=== PATIENT | female | born 1975 | race Hispanic/Latino ===

== ENCOUNTER 2020-03-26 10:02 | Observation (INO) | payer OTHER ==
[2020-03-24 16:32] LABS: BASOPHILS # (AUTO) 0.1 (0.0-0.1); BASOPHILS % 0.6 % (0.0-1.0); EOSINOPHILS # (AUTO) 0.2 (0.0-0.4); EOSINOPHILS % 2.5 % (0.0-6.0); HEMATOCRIT 32.8 % (34.2-44.1); HEMOGLOBIN 10.2 g/dL (12.0-16.0); LYMPHOCYTES # (AUTO) 1.5 (1.0-3.2); LYMPHOCYTES % 18.4 % (18.0-39.1); MEAN CORPUSCULAR HEMOGLOBIN 26.6 pg (28-32); MEAN CORPUSCULAR HGB CONC 31.1 g/dL (31-35); MEAN CORPUSCULAR VOLUME 85.4 fL (81-99); MONOCYTES # (AUTO) 0.6 (0.2-0.8); MONOCYTES % 7.7 % (4.4-11.3); NEUTROPHILS # (AUTO) 5.6 (2.1-6.9); NEUTROPHILS % 70.5 % (38.7-80.0); PLATELET COUNT 297 x10e3/uL (140-360); RED BLOOD COUNT 3.84 x10e6/uL (3.6-5.1); RED CELL DISTRIBUTION WIDTH 15.3 % (11.7-14.4)
[2020-03-24 16:35] LABS: BILIRUBIN,URINE NEGATIVE (NEGATIVE); CLARITY,URINE SL CLOUDY (CLEAR); COLOR,URINE YELLOW (YELLOW); KETONES,URINE NEGATIVE (NEGATIVE); LEUKOCYTE ESTERASE ,URINE NEGATIVE (NEGATIVE); NITRITE,URINE NEGATIVE (NEGATIVE); PROTEIN,URINE DIPSTICK NEGATIVE (NEGATIVE); URINE UROBILINOGEN 0.2 mg/dL (0.2 - 1)
[2020-03-24 16:49] LABS: ANION GAP 10.9 mmol/L (8-16); BLOOD UREA NITROGEN 18 mg/dL (7-26); BUN/CREATININE RATIO 25 (6-25); CALCIUM 9.1 mg/dL (8.4-10.2); CARBON DIOXIDE 26 mmol/L (22-29); CHLORIDE 105 mmol/L (98-107); CREATININE, SERUM 0.72 mg/dL (0.57-1.11); EST GLOMERULAR FILTRATION RATE > 60 ML/MIN (60-); GLUCOSE 97 mg/dL (74-118); POTASSIUM 3.9 mmol/L (3.5-5.1); SODIUM 138 mmol/L (136-145)
[~2020-03-26] VITALS: Ht 157.5 cm; Wt 63.0 kg
[~2020-03-26 10:02] MED LIST: ADDERALL 30 MG30 MG PO
[2020-03-26] MEDS: CEFAZOLIN SOD 1 GM/NS 50ML 100 ML IV ONE (11:33)
[2020-03-26] MEDS ORDERED: PROPOFOL IV EMULSION 10 MG/ML 20 ML VIAL ONE (13:45)
[2020-03-26] MEDS ORDERED: ONDANSETRON HCL INJ 2MG/ML 2ML 2 MG/ML VIAL ONE (13:45)
[2020-03-26] MEDS ORDERED: DEXAMETHASONE SOD PHOS INJ 4 MG/ML VIAL ONE (13:45)
[2020-03-26] MEDS ORDERED: ROCURONIUM BROMIDE 10 MG/ML 5ML VIAL IV ONE (13:45)
[2020-03-26] MEDS ORDERED: KETOROLAC TROMETHAMINE 30 MG/ML VIAL ONE (13:45)
[2020-03-26] MEDS ORDERED: SEVOFLURANE INHAL SOLN 250 ML PEN BTL ONE (13:45)
[2020-03-26] MEDS ORDERED: LIDOCAINE HCL 2% LOCAL INJ 5 ML SDV VIAL INJ ONE (13:45)
[2020-03-26] MEDS ORDERED: MEPERIDINE HCL INJ 25 MG/ML VIAL ONE (15:39)
[2020-03-26] MEDS ORDERED: ONDANSETRON HCL INJ 2MG/ML 2ML 2 MG/ML VIAL IV PRN (15:45)
[2020-03-26] MEDS ORDERED: DIPHENHYDRAMINE HCL 25 MG CAP PO PRN (15:45)
[2020-03-26] MEDS ORDERED: BISACODYL 10 MG SUPP PR PRN (15:45)
[2020-03-26] MEDS ORDERED: ACETAMINOPHEN 325 MG TAB PO PRN (15:45)
[2020-03-26] MEDS ORDERED: DOCUSATE SODIUM 100 MG CAP PO PRN (15:45)
[2020-03-26] MEDS ORDERED: SIMETHICONE 80 MG CHEW PO PRN (15:45)
--- OUTSIDE RECORDS SUMMARY | 2020-03-26 16:08 | XMS REPORT | Continuity of Care Document ---
Author Author [facility] t Organization [facility] Address [address] [place] [address] Phone Unavailable Care Team Providers Care Mems Device Scientist Name Role Phone Chad Rayisel Attphys Unavailable Marivel Perez Attphys Arnoldo Ulrich Attphys Unavailable Harsh Henao Attphys Unavailable Radha Rush Attphys Unavailable Joana Patton Attphys Unavailable Gayatri Simmons Attphys Unavailable Faith Lezama Attphys Supervisor Taping, Health Advocate Student Attphys Unavail able Ernesto Freeman Attphys Unavailable Vivien Francisca Attphys Unavailable Denzel Snyder Attphys Unavailable Gabriella Callahan Attphys Unavailable Paul, Ammy Attphys Unavailable Chanelle De La Cruz Attphys Unavailable Juliana, Lorenz Ocotlan Attphys Unavailable Wili Bowles Attphys Marie العلي Attphys Unavailable Luci Will Attphys Unavailable Carter, Naila Attphys Unavailable Lisa Falcon Attphys Nathaly Cronin Attphys Unavailable Ellen Vicente Attphys Barry, Christiane Attphys Unavailable Javi, Paulette Attphys Unavailable Maxwell Sanders Attphys Quezada, Christiane Attphys Unavailable Jon Dang Attphys Unavailable Shanice, Mary Attphys Unavailable Feng Waretee Attphys Unavailable Wilda Burgos Attphys Unavailable Elisabeth Dumont Attphys Unavailable Roni, Leslee Attphys Unavailable Izquierdo, Tracey Attphys Unavailable Preeti Bull Attphys Unavailable Lomax, Alison Attphys Araceli French Attphys Gaffney Hilary Attphys Unavailable Romi Alvaerz Attphys Harrison Reddy Attphys Unavailable CRAIG Perez, Bridget Attphys Unavailable Juan Luis Posta Attphys Unavailable Status, Fax Attphys Unavailable Cavazos, Agnes Attphys AvalosJamar mcclellan Attphys Unavailable Yaa, Shima Attphys Unavailable Jono, Suzanne Attphys Unavailable Galvan, Jesenia Attphys Unavailable Nomi Trevizo Attphys Celestina Massey Attphys Unavailable Felicia, Mercades Attphys Unavailable Marx, Elsie Attphys Unavailable HarikaTerri espinoa Attphys Faith Lezama Unavailable Wili Bowles Unavailable Lomax Alison Unavailable [place] singh Unavailable Nomi Trevizo Unavailable Payers Payer Name Policy Type Policy Number Effective Date Expiration Date S ource Sliding Fee - Cat 1 CI [id number] 2018 00:00:00 2019-07 00:00:00 [facility] Sliding Fee - Cat 1 CI [id number] 2015 00:00:00 2016-10 00:00:00 [facility] Sliding Fee - Cat 1 11 [id number] 2014 00:00:00 2015-10 00:00:00 [facility] Problems Condition Name Condition Details Condition Category Status Onset Date Resolution Date Last Treatment Date Treating Clinician Comments Source Hemorrhoids, external Condition Active 2018-12-10 00:00:0 0 2018-12-10 09:24:00 [facility] Condition Active 2018-12-10 00:00:00 2018 09:24:00 Faith Lezama [facility] Gynecological examination, routine Condition Active 12-10 00:00:00 2018-12-10 09:24:00 Faith Lezama [facility] GERD Condition Active 2018-05-28 00:00:00 2018-12-10 08:50:37 Teja Faith [facility] Encounter for immunization Condition Active 2017-07-17 00 :00:00 2018-05-28 09[facility]52[facility] Condition Active 2017-07-17 00 :00:00 2018-05-28 09[facility]52[facility] BMI 28.0-28.9 Condition Active 2017-07-17 00:00:00 2017 09:19:27 [facility] Overweight Condition Active 2017-07-17 00:00:00 2017-06 09:19:27 [facility] ADHD, PREDOMINANTLY INATTENTIVE PRESENTATION, MILD Con dition Active 2016-07-03 00:00:00 2017-06-11 13:00:50 Alison Lomax [facility] LEARNING DISORDER NOS Condition Active 2016-02-08 00:00:0 0 2017-06-11 13:00:50 Marivel Perez [facility] Enlarged uterus Condition Active 2015-06-09 00:00:00 20 05-06-19 17:21:03 Nomi Trevizo [facility] History of Past Illness Condition Name Condition Details Condition Category Status Onset Date Resolution Date Last Treatment Date Treating Clinician Comments Source Fever Condition Inactive 2018-05-28 00:00:00 2018-12-10 00:00:00 2018-12-10 09:24:00 Faith Lezama [facility] URI Condition Inactive 2018-05-28 00:00:00 2018-12-10 00:00:00 2018-12-10 09:24:00 aFith Lezama [facility] Screening examination for pulmonary tuberculosis Condi tion Inactive 2018-05-28 00:00:00 2018-12-10 00:00:00 2018-12-10 09:24:00 Faith Lezama [facility] Breast Exam, Screening Condition Inactive 2017-07-17 00 :00:00 2018-12-10 00:00:00 2018-12-10 09:24:00 [facility] WELL WOM[facility] Condition Inactive 2015-06-09 00:00:00 2018-11-19 3 00:00:00 2018-12-10 09:24:00 Faith Lezama [facility] Special screening examination for other specified viral diseases Condition Inactive 2017-07-17 00:00:00 2018-05-28 00:00:00 2018-05-28 10:22:18 Faith Yao [facility] Screening for std Condition Inactive 2017-07-17 00:00:00 20 08-06-07 00:00:00 2018-05-28 10:22:18 Faith Lezama [facility] Screening for vitamin D deficiency Condition Inactive 2 00:00:00 2018-05-28 00:00:00 2018-05-28 10:22:18 Faith Lezama [facility] Screening for DM Condition Inactive 2017-07-17 00:00:00 201 01-20-08 00:00:00 2018-05-28 10:22:18 Faith Lezama [facility] Screening for endocrine disease Condition Inactive 2017 00:00:00 2018-05-28 00:00:00 2018-05-28 10:22:18 [facility] Screening for chlamydial disease Condition Inactive 201 12-20-26 00:00:00 2018-05-28 00:00:00 2018-05-28 10:22:18 [facility] Screening for lipid disorder Condition Inactive 2017-06 00:00:00 2018-05-28 00:00:00 2018-05-28 10:22:18 [facility] Menorrhagia Condition Inactive 2015-06-09 00:00:00 00:00:00 2017-07-17 09:19:27 Wili Bowles [facility] ADHD, COMBINED PRESENTATION, MODERATE Condition Inactive 2015-04-05 00:00:00 2017-06-11 00:00:00 2017-06-11 13:02:50 Marivel Perez [facility] Adjustment disorder with depressed mood Condition I nactive 2014-11-26 00:00:00 2015-12-17 00:00:00 2015-12-17 11:23:08 Marivel Perez [facility] ANXIETY DISORDER NOS Condition Inactive 2014-11-26 00:0 0:00 2015-12-17 00:00:00 2015-12-17 11:23:08 Marivel Peerz [facility] Allergies, Adverse Reactions, Alerts Allergy Name Allergy Type Status Severity Reaction(s) Onset Date Inacti ve Date Treating Clinician Comments Source VICODIN Drug allergy (disorder) Active Hives 2014-11-26 00:00:00 [facility] Social History Social Habit Start Date Stop Date Quantity Comments Source drug use, illicit 2019-07-03 08:11:09 2019-07-03 08:11:09 Never [facility] alcohol use 2019-07-03 08:11:09 2019-07-03 08:11:09 Currently [facility] social history reviewed E&M 2019-07-03 08:11:09 2019-07-03 08:11 :09 reviewed today [facility] social history E&M 2019-07-03 08:11:09 2019-07-03 08:11:09 Denise sheehan Family is financially supported by mother's job and mother applied for unemployment. since 2009. Currently has a boyfriend. Not homeless. Born in [facility]. City: [place]. State: [place]. Lives with children (20, 18, 17, 15, 14, and 12 year old) in a house in [place]. 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 Highest education level: some college. 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 One year of college. She was a B student. No history of repeating a grade or needing a accommodations. Sex at : Female. Sexual orientation: Heterosexual. Gender identity: Female. Age of first sexual intercourse: 12. Sexually Active: No. Grew up in [employer] which was very strict, no longer participating and in [employer] [facility] alcohol use, frequency 2018-12-10 08:19:42 2018-12-10 08:19:42 h olidays/special occasions only [facility] is there any chance that you could be ? 2018-12-10 0 8:19:42 2018-12-10 08:19:42 No [facility] passive cigarette smoke exposure 2018-12-10 08:19:42 2018-12-10 08:19 :42 No [facility] sexual orientation 2018-12-10 08:19:42 2018-12-10 08:19:42 Heterosexu al [facility] assessment of health literacy ([facility] 2014 Standard s, 3C10) 2018-12-10 08:19:42 2018-12-10 08:19:42 Adequate [facility] time of call 2018-07-01 10:25:58 2018-07-01 10:25:58 07/01/2018 10:26 AM [facility] I do not always have enough money to buy food with 2017-06-22 7 08:22:12 2017-07-17 08:22:12 Yes [facility] fiber intake 2017-07-17 08:22:12 2017-07-17 08:22:12 No [facility] fat intake per day 2017-07-17 08:22:12 2017-07-17 08:22:12 No [facility] iron intake per day 2017-07-17 08:22:12 2017-07-17 08:22:12 No [facility] exercise type 2017-07-17 08:22:12 2017-07-17 08:22:12 none [facility] smoke detector present in home 2017-07-17 08:22:12 2017-07-17 08:22:1 2 Yes [facility] helmet use when riding 2017-07-17 08:22:12 2017-07-17 08:22:12 No [facility] seatbelt usage 2017-07-17 08:22:12 2017-07-17 08:22:12 Yes [facility] sex at 2017-07-17 08:22:12 2017-07-17 08:22:12 Female [facility] tobacco use (cigarettes, cigar, chew, pipe) 2015-06-09 14:20 :42 2015-06-09 14:20:42 Never [facility] alcohol use, number maximum drinks per occasion 2014-11-26 0 8:46:13 2014-11-26 08:46:13 2 margartias/ weekend [facility] Occupation #1 2014-11-26 08:46:13 2014-11-26 08:46:13 Medical Assista nt [facility] patient considered to be homeless 2014-11-26 08:46:13 2014-11-26 08:4 6:13 No [facility] family support 2014-11-26 08:46:13 2014-11-26 08:46:13 Family i s financially supported by mother's job and mother applied for unemployment. since 2009. Currently has a boyfriend. [facility] home/family situation, assessment 2014-11-26 08:46:13 2014-11-26 08:46:13 Lives with children (20, 18, 17, 15, 14, and 12 year old) in a house in [place]. [facility] Smoking Status Start Date Stop Date Source Never smoked tobacco (finding) [facility] Ex-smoker (finding) 2017-12-20 09:18:04 2017-12-20 09:18:04 [facility] tobacco smoker (finding) 2014-11-26 08:46:13 [facility] Medications Ordered Medication Name Filled Medication Name Start Date Stop Da te Current Medication? Ordering Clinician Indication Dosage Frequency Signature (SIG) Comments Components Source (RANITIDINE HCL) 150 MG TABS 2018-05-28 00:00:00 Yes Elisabeth Lezama 1 by mouth twice a day before meals for acid reflux as needed [facility] CHERATUSSIN AC (GUAIFENESIN-CODEINE) 100-10 MG/5ML SYRP 2018-05-28 00:00:00 2018-12-10 00:00:00 No 1-2 t easpoons (5-10mL) by mouth every night as needed for cough [facility] TESSALON PERLES (BENZONATATE) 100 MG CAPS 05-28 00:00:00 2018-12-10 00:00:00 No 1{Capsule} 3xD 1 by mouth 3 times a day as needed for cough [facility] ADDERALL (AMPHETAMINE-DEXTROAMPHETAMINE) 10 MG TABS 2017-05 00:00:00 Yes Marivel [place] Take 1 tab By Mouth By Mouth Qafter noon [facility] VYVANSE (LISDEXAMFETAMINE DIMESYLATE) 50 MG CAPS 2018-02-19 3 00:00:00 Yes Marivel [place] 1{Capsule} 1xD take 1 capsule By Mouth every morn ing [facility] CONCERTA (METHYLPHENIDATE HCL) 54 MG CR-TABS 201 10-24-28 00:00:00 2015-12-15 00:00:00 No Take 1 tablet By Mouth every mo rning. [facility] MYDAYIS (AMPHETAMINE-DEXTROAMPHETAMINE) 25 MG [id number] 2015-05-03 00:00:00 2018-03-12 00:00:00 No Take 1 capsule By Mo uth every morning 340b plan [facility] ADDERALL XR (AMPHETAMINE-DEXTROAMPHETAMINE) 15 MG [id number] 2015-04-05 00:00:00 2015-07-12 00:00:00 No Take 1 caps ule By Mouth every morning. CTRL#[id number] (340b plan) [facility] WELLBUTRIN XL (BUPROPION HCL) 150 MG [id number] 2 00:00:00 2015-04-05 00:00:00 No Take 1 capsule by mouth every m orning [facility] (BUSPIRONE HCL) 5 MG TABS 2014-11-26 00:00:00 2015-04-05 00:00:00 No Take one tablet as needed for anxiety attacks [facility] Immunizations Ordered Immunization Name Filled Immunization Name Date Status Comments Source twinrix im [id number] 2018-12-10 11:19:00 Completed [facility] Vital Signs Vital Name Observation Time Observation Value Comments Source blood pressure, diastolic 2019-07-03 08:11:09 78 mm[Hg] [facility] blood pressure, systolic 2019-07-03 08:11:09 122 mm[Hg] [facility] pulse rate E&M 2019-07-03 08:11:09 77 /min [facility] weight E&M 2019-07-03 08:11:09 138 [lb_av] [facility] weight in kilograms E&M 2019-07-03 08:11:09 62.73 kg [facility] height in centimeters E&M 2019-07-03 08:11:09 152.40 cm [facility] blood pressure, diastolic 2019-04-07 09:58:51 56 mm[Hg] [facility] blood pressure, systolic 2019-04-07 09:58:51 130 mm[Hg] [facility] pulse rate E&M 2019-04-07 09:58:51 96 /min [facility] weight E&M 2019-04-07 09:58:51 141 [lb_av] [facility] weight in kilograms E&M 2019-04-07 09:58:51 64.09 kg [facility] height in centimeters E&M 2019-04-07 09:58:51 152.40 cm [facility] blood pressure, diastolic 2019-01-13 08:41:15 80 mm[Hg] [facility] blood pressure, systolic 2019-01-13 08:41:15 123 mm[Hg] [facility] pulse rate E&M 2019-01-13 08:41:15 74 /min [facility] weight E&M 2019-01-13 08:41:15 138.38 [lb_av] [facility] weight in kilograms E&M 2019-01-13 08:41:15 62.90 kg [facility] height E&M 2019-01-13 08:41:15 60 [in_i] [facility], [facility] 2018-12-10 08:19:42 78 mm[Hg] [facility] blood pressure, systolic 2018-12-10 08:19:42 118 mm[Hg] [facility] oxygen saturation, oximetry 2018-12-10 08:19:42 99 % [facility] pulse rate E&M 2018-12-10 08:19:42 76 /min [facility] temperature E&M 2018-12-10 08:19:42 97.8 [degF] [facility] 2018-12-10 08:19:42 138 [lb_av] [facility] E&M 2018-12-10 08:19:42 62.73 kg [facility] temperature site 2018-12-10 08:19:42 oral Lega [facility] height in centimeters E&M 2018-12-10 08:19:42 152.40 cm [facility] blood pressure, diastolic 2018-10-21 08:25:07 76 mm[Hg] [facility] blood pressure, systolic 2018-10-21 08:25:07 108 mm[Hg] [facility] pulse rate E&M 2018-10-21 08:25:07 72 /min [facility] weight E&M 2018-10-21 08:25:07 136 [lb_av] [facility] E&M 2018-10-21 08:25:07 61.82 kg [facility] height in centimeters E&M 2018-10-21 08:25:07 152.40 cm [facility] blood pressure, diastolic 2018-07-29 08:24:35 80 mm[Hg] [facility] blood pressure, systolic 2018-07-29 08:24:35 113 mm[Hg] [facility] pulse rate E&M 2018-07-29 08:24:35 123 /min [facility] weight E&M 2018-07-29 08:24:35 140.25 [lb_av] [facility] weight in kilograms E&M 2018-07-29 08:24:35 63.75 kg [facility] height in centimeters E&M 2018-07-29 08:24:35 152.40 cm [facility] oxygen saturation, oximetry 2018-05-28 09:12:52 98 % [facility] pulse rate E&M 2018-05-28 09:12:52 91 /min [facility] blood pressure, diastolic 2018-05-28 09:12:52 82 mm[Hg] [facility] blood pressure, systolic 2018-05-28 09:12:52 127 mm[Hg] [facility] temperature E&M 2018-05-28 09:12:52 98.5 [degF] Legac y [facility] temperature site 2018-05-28 09:12:52 oral Lega cy [facility] height in centimeters E&M 2018-05-28 09:12:52 152.40 cm [facility] weight E&M 2018-05-28 09:12:52 141 [lb_av] [facility] weight in kilograms E&M 2018-05-28 09:12:52 64.09 kg [facility] blood pressure, diastolic 2018-05-07 08:41:22 74 mm[facility]] [facility] 2018-05-07 08:41:22 120 mm[Hg] [facility] rate E&M 2018-05-07 08:41:22 78 /min [facility] weight E&M 2018-05-07 08:41:22 141 [lb_av] [facility] weight in kilograms E&M 2018-05-07 08:41:22 64.09 kg [facility] height in centimeters E&M 2018-05-07 08:41:22 152.40 cm [facility] blood pressure, diastolic 2018-03-12 08:27:31 79 mm[Hg] [facility] blood pressure, systolic 2018-03-12 08:27:31 129 mm[Hg] [facility] pulse rate E&M 2018-03-12 08:27:31 82 /min [facility] weight E&M 2018-03-12 08:27:31 145.13 [lb_av] [facility] in [facility] E&M 2018-03-12 08:27:31 65.97 kg [facility] height in centimeters E&M 2018-03-12 08:27:31 152.40 cm [facility] blood pressure, diastolic 2017-12-20 09:18:04 80 mm[Hg] [facility] blood pressure, systolic 2017-12-20 09:18:04 120 mm[Hg] [facility] pulse rate E&M 2017-12-20 09:18:04 79 /min [facility] E&M 2017-12-20 09:18:04 144 [lb_av] [facility] weight in kilograms E&M 2017-12-20 09:18:04 65.45 kg [facility] height E&M 2017-12-20 09:18:04 60 [in_i] [facility] blood pressure, diastolic 2017-09-03 08:30:26 78 mm[Hg] [facility] blood pressure, systolic 2017-09-03 08:30:26 126 mm[Hg] [facility]&M 2017-09-03 08:30:26 80 /min [facility] weight E&M 2017-09-03 08:30:26 146 [lb_av] [facility] weight in kilograms E&M 2017-09-03 08:30:26 66.36 [facility] height E&M 2017-09-03 08:30:26 60 [in_i] [facility] blood pressure, diastolic 2017-08-02 08:11:47 87 mm[Hg] [facility] blood pressure, systolic 2017-08-02 08:11:47 130 mm[Hg] [facility] pulse rate E&M 2017-08-02 08:11:47 79 /min [facility] blood pressure, diastolic 2017-07-17 08:22:12 83 mm[Hg] [facility] blood pressure, systolic 2017-07-17 08:22:12 124 mm[Hg] [facility] oxygen saturation, oximetry 2017-07-17 08:22:12 98 % [facility] pulse rate E&M 2017-07-17 08:22:12 82 /min [facility] temperature E&M 2017-07-17 08:22:12 98 [degF] Legac [facility] weight E&M 2017-07-17 08:22:12 145 [lb_av] [facility] weight in kilograms E&M 2017-07-17 08:22:12 65.91 kg [facility] temperature site 2017-07-17 08:22:12 oral L[facility] height in centimeters E&M 2017-07-17 08:22:12 152.40 cm [facility] blood pressure, diastolic 2017-06-11 08:45:36 58 mm[Hg] [facility] blood pressure, systolic 2017-06-11 08:45:36 94 mm[Hg] [facility] pulse rate E&M 2017-06-11 08:45:36 80 /min [facility] 2017-06-11 08:45:36 148.13 [lb_av] [facility] weight in kilograms E&M 2017-06-11 08:45:36 67.33 kg [facility] height in centimeters E&M 2017-06-11 08:45:36 152.40 cm [facility] blood pressure, diastolic 2017-03-06 15:03:17 82 mm[Hg] [facility] blood pressure, systolic 2017-03-06 15:03:17 130 mm[Hg] [facility] pulse rate E&M 2017-03-06 15:03:17 82 /min [facility] weight E&M 2017-03-06 15:03:17 148.38 [lb_av] [facility] weight in kilograms E&M 2017-03-06 15:03:17 67.45 kg [facility] height in centimeters E&M 2017-03-06 15:03:17 152.40 cm [facility] blood pressure, diastolic 2016-10-03 16:00:46 84 mm[Hg] [facility] blood pressure, systolic 2016-10-03 16:00:46 126 mm[Hg] [facility] pulse rate E&M 2016-10-03 16:00:46 77 /min [facility] weight E&M 2016-10-03 16:00:46 149.20 [lb_av] [facility] weight in kilograms E&M 2016-10-03 16:00:46 67.82 kg [facility] height in centimeters E&M 2016-10-03 16:00:46 152.40 cm [facility] blood pressure, diastolic 2016-07-11 15:54:30 87 mm[Hg] [facility] blood pressure, systolic 2016-07-11 15:54:30 120 mm[Hg] [facility] pulse rate E&M 2016-07-11 15:54:30 89 /min [facility] weight E&M 2016-07-11 15:54:30 146 [lb_av] [facility] weight in kilograms E&M 2016-07-11 15:54:30 66.36 kg [facility] height in centimeters E&M 2016-07-11 15:54:30 152.40 cm [facility] blood pressure, diastolic 2016-04-11 16:02:30 87 mm[Hg] [facility] blood pressure, systolic 2016-04-11 16:02:30 118 mm[Hg] [facility] pulse rate E&M 2016-04-11 16:02:30 106 /min [facility] weight E&M 2016-04-11 16:02:30 144.38 [lb_av] [facility] weight in kilograms E&M 2016-04-11 16:02:30 65.63 kg [facility] height in centimeters E&M 2016-04-11 16:02:30 152.40 cm [facility] blood pressure, diastolic 2016-02-08 16:09:12 85 mm[Hg] [facility] blood pressure, systolic 2016-02-08 16:09:12 118 mm[Hg] [facility] pulse rate E&M 2016-02-08 16:09:12 88 /min [facility] weight E&M 2016-02-08 16:09:12 150 [lb_av] [facility] weight in kilograms E&M 2016-02-08 16:09:12 68.18 kg [facility] height in centimeters E&M 2016-02-08 16:09:12 152.40 cm [facility] blood pressure, diastolic 2015-12-15 13:42:51 74 mm[Hg] [facility] blood pressure, systolic 2015-12-15 13:42:51 127 mm[Hg] [facility] pulse rate E&M 2015-12-15 13:42:51 89 /min [facility] blood pressure, diastolic 2015-12-15 08:47:40 80 mm[Hg] [facility] blood pressure, systolic 2015-12-15 08:47:40 119 mm[Hg] [facility] pulse rate E&M 2015-12-15 08:47:40 74 /min [facility] weight E&M 2015-12-15 08:47:40 152.13 [lb_av] [facility] weight in kilograms E&M 2015-12-15 08:47:40 69.15 kg [facility] height in centimeters E&M 2015-12-15 08:47:40 152.40 cm [facility] blood pressure, diastolic 2015-12-13 12:59:04 77 mm[Hg] [facility] blood pressure, systolic 2015-12-13 12:59:04 126 mm[Hg] [facility] Health pulse rate E&M 2015-12-13 12:59:04 100 /min [facility] blood pressure, diastolic 2015-11-18 08:21:44 81 mm[Hg] [facility] blood pressure, systolic 2015-11-18 08:21:44 127 mm[Hg] [facility] pulse rate E&M 2015-11-18 08:21:44 66 /min [facility] blood pressure, diastolic 2015-11-17 11:01:05 84 mm[Hg] [facility] blood pressure, systolic 2015-11-17 11:01:05 116 mm[Hg] [facility] pulse rate E&M 2015-11-17 11:01:05 65 /min [facility] weight E&M 2015-11-17 11:01:05 154.50 [lb_av] [facility] weight in kilograms E&M 2015-11-17 11:01:05 70.23 kg [facility] height in centimeters E&M 2015-11-17 11:01:05 152.40 cm [facility] blood pressure, diastolic 2015-08-09 14:54:53 82 mm[Hg] [facility] blood pressure, systolic 2015-08-09 14:54:53 116 mm[Hg] [facility] pulse rate E&M 2015-08-09 14:54:53 79 /min [facility] weight E&M 2015-08-09 14:54:53 159 [lb_av] [facility] weight in kilograms E&M 2015-08-09 14:54:53 72.27 kg [facility] height in centimeters E&M 2015-08-09 14:54:53 152.40 cm [facility] blood pressure, diastolic 2015-07-12 16:33:24 89 mm[Hg] [facility] blood pressure, systolic 2015-07-12 16:33:24 136 mm[Hg] [facility] pulse rate E&M 2015-07-12 16:33:24 80 /min [facility] weight E&M 2015-07-12 16:33:24 159.50 [lb_av] [facility] weight in kilograms E&M 2015-07-12 16:33:24 72.50 kg [facility] height in centimeters E&M 2015-07-12 16:33:24 152.40 cm [facility] pulse rate E&M 2015-06-09 14:20:42 85 /min [facility] blood pressure, diastolic 2015-06-09 14:20:42 87 mm[Hg] [facility] blood pressure, systolic 2015-06-09 14:20:42 142 mm[Hg] [facility] weight E&M 2015-06-09 14:20:42 162.38 [lb_av] [facility] weight in kilograms E&M 2015-06-09 14:20:42 73.81 kg [facility] height in centimeters E&M 2015-06-09 14:20:42 152.40 cm [facility] blood pressure, diastolic 2015-05-03 13:47:14 81 mm[Hg] [facility] blood pressure, systolic 2015-05-03 13:47:14 116 mm[Hg] [facility] pulse rate E&M 2015-05-03 13:47:14 86 /min [facility] weight E&M 2015-05-03 13:47:14 163.50 [lb_av] [facility] weight in kilograms E&M 2015-05-03 13:47:14 74.32 kg [facility] height in centimeters E&M 2015-05-03 13:47:14 152.40 cm [facility] blood pressure, diastolic 2015-04-05 13:40:41 94 mm[Hg] [facility] blood pressure, systolic 2015-04-05 13:40:41 146 mm[Hg] [facility] pulse rate E&M 2015-04-05 13:40:41 86 /min [facility] height in centimeters E&M 2015-04-05 13:40:41 152.40 cm [facility] weight E&M 2015-04-05 13:40:41 165 [lb_av] [facility] 2015-04-05 13:40:41 75 kg [facility] height in centimeters E&M 2014-11-26 08:46:13 152.40 cm [facility] blood pressure, diastolic 2014-11-26 08:46:13 84 mm[Hg] [facility] blood pressure, systolic 2014-11-26 08:46:13 121 mm[Hg] [facility] pulse rate E&M 2014-11-26 08:46:13 78 /min [facility] weight E&M 2014-11-26 08:46:13 164.40 [lb_av] [facility] weight in kilograms E&M 2014-11-26 08:46:13 74.73 kg [facility] Procedures Procedure Date / Time Performed Performing Clinician Sourc e Vaccines Ordered - Print Consent/Declination Forms 2018-11-19 3 09:21:27 Teja, [facility] Rapid Flu - In House 2018-05-28 10:20:24 Teja [facility] Urinalysis - Dip only - In House 2017-07-17 09:14:28 Wilbur Manuel heidi [facility] Urinalysis - - In House 2017-07-17 09:14:26 Rylee Bowles [facility] Venipuncture 2017-07-17 09:13:30 Wilbur Manuelheidi [facility] Influenza 4 Valent 3yrs+ IM - Declined 2017-07-17 09:13:30 J Luismohinder harshWili [facility] Psychological Testing / hr - [id number] 2016-07-03 14:50:22 Anthony Lomax [facility] Psychological Testing / hr - [id number] 2016-06-09 21:50:16 Anthony Lomax [facility] Psychological Testing / hr - [id number] 2016-06-03 23:01:04 Anthony Lomax [facility] EKG - Tracing Only 2015-08-09 15:08:36 Marivel Perez [facility] Venipuncture 2015-06-09 15:46:06 Nomi Trevizo [facility] Diagnostic evaluation with medical - [id number] 2014-11-26 12:08:59 Marivel Vera [facility] Encounters Start Date/Time End Date/Time Encounter Type Admission Type [facility] Care Department Encounter ID Source 2019-07-24 00:00:00 2019-07-24 00:00:00 Office Visit RayMary calderon [facility] Patient Education Encounter/[id number] [facility] 2019-07-03 00:00:00 2019-07-03 00:00:00 Office Visit Marivel Vera [facility] Encounter/[id number] [facility] 2019-06-10 00:00:00 2019-06-10 00:00:00 Office Visit Marivel Vera [facility] Encounter/[id number] [facility] 2019-05-12 00:00:00 2019-05-12 00:00:00 Office Visit Marivel Perez [facility] Encounter/[id number] [facility] 2019-04-07 00:00:00 2019-04-07 00:00:00 Office Visit Arnoldo Ulrich [facility] Encounter/[id number] [facility] 2019-04-07 00:00:00 2019-04-07 00:00:00 Office Visit Marivel Vera [facility] Encounter/[id number] [facility] 2019-03-03 00:00:00 2019-03-03 00:00:00 Office Visit Marivel Vera Israel Campbell, Mary N [facility] Encounter/[id number] [facility] 2019-01-13 00:00:00 2019-01-13 00:00:00 Office Visit Marivel Vera Angela [facility] Encounter/[id number] [facility] 2018-12-31 00:00:00 2018-12-31 00:00:00 Office Visit Marivel Perez [facility] Encounter/[id number] [facility] 2018-12-30 00:00:00 2018-12-30 00:00:00 Office Visit Marivel Vera Israel Jones, Christine [facility] Encounter/[id number] [facility] 2018-12-18 00:00:00 2018-12-18 00:00:00 Office Visit Gayatri Simmons [facility] Encounter/[id number] [facility] 2018-12-18 00:00:00 2018-12-18 00:00:00 Office Visit Gayatri Simmons [facility] Encounter/[id number] [facility] 2018-12-18 00:00:00 2018-12-18 00:00:00 Office Visit Faith Lezama [facility] Encounter/[id number] [facility] 2018-12-10 00:00:00 2018-12-10 00:00:00 Office Visit Faith Lezama [facility] Encounter/[id number] [facility] 2018-12-10 00:00:00 2018-12-10 00:00:00 Office Visit Faith Lezama [facility] Encounter/[id number] [facility] 2018-12-10 00:00:00 2018-12-10 00:00:00 Office Visit Faith Lezama [facility] Encounter/[id number] [facility] 2018-12-10 00:00:00 2018-12-10 00:00:00 Office Visit Faith Sarabia Myrissa [facility] Encounter/[id number] [facility] 2018-12-10 00:00:00 2018-12-10 00:00:00 Office Visit Chai trinidad, Health Advocate Student Ernesto Freeman [facility] Encounter/[id number] [facility] 2018-12-10 00:00:00 2018-12-10 00:00:00 [facility] Encounter/[id number] [facility] 2018-12-10 00:00:00 2018-12-10 00:00:00 Office Visit Faith Sarabia Pamela Beverly, Carlis Perez, Emily [facility] Encounter/[id number] [facility] 2018-11-26 00:00:00 2018-11-26 00:00:00 Office Visit Marivel Vera, Ammy Childress [facility] Encount er/[id number] [facility] 2018-10-21 00:00:00 2018-10-21 00:00:00 Office Visit Marivel Vera [facility] Encounter/[id number] [facility] 2018-07-29 00:00:00 2018-07-29 00:00:00 Office Visit Marivel Vera [facility] En[facility]/[id number] [facility] 2018-07-01 00:00:00 2018-07-01 00:00:00 Office Visit Ashley Steele [facility] Public Health Services Encounter/[id number] [facility] 2018-07-01 00:00:00 2018-07-01 00:00:00 Office Visit Ashley Steele [facility] Public Health Services Encounter/[id number] [facility] 2018-06-28 00:00:00 2018-06-28 00:00:00 Office Visit Ashley Steele [facility] Public Health Services Encounter/[id number] [facility] 2018-06-07 00:00:00 2018-06-07 00:00:00 Office Visit Gayatri Simmons [facility] Encounter/[id number] [facility] 2018-06-07 00:00:00 2018-06-07 00:00:00 Office Visit Faith Lezama [facility] Encounter/[id number] [facility] 2018-05-28 00:00:00 2018-05-28 00:00:00 Office Visit Wili Bowles [facility] Encounter/[id number] [facility] 2018-05-28 00:00:00 2018-05-28 00:00:00 Office Visit Faith Sarabia Myrissa [facility] Encounter/[id number] [facility] 2018-05-28 00:00:00 2018-05-28 00:00:00 Office Visit Faith Sarabia Carlis [facility] Encounter/[id number] [facility] 2018-05-28 00:00:00 2018-05-28 00:00:00 Office Visit Faith Lezama [facility] Encounter/[id number] [facility] 2018-05-28 00:00:00 2018-05-28 00:00:00 Office Visit Faith Sarabia Pamela Beverly, Carlis Ruiz, Sandy [facility] Encounter/[id number] [facility] 2018-05-07 00:00:00 2018-05-07 00:00:00 Office Visit Marivel Vera Nancy [facility] Encounter/[id number] [facility] 2018-04-08 00:00:00 2018-04-08 00:00:00 Office Visit Marivel Vera Angela Pardo, Monserrat [facility] Encount er/[id number] [facility] 2018-03-12 00:00:00 2018-03-12 00:00:00 Office Visit Marivel Vera Nancy [facility] Encounter/[id number] [facility] 2018-03-07 00:00:00 2018-03-07 00:00:00 Office Visit Marivel Vera, Naila Will, Luci [facility] Encounter/[id number] [facility] 2018-02-04 00:00:00 2018-02-04 00:00:00 Office Visit Marivel Vera, Luci [facility] Encounter/[id number] [facility] 2017-12-20 00:00:00 2017-12-20 00:00:00 Office Visit Marivel Vera Angela [facility] Encounter/[id number] [facility] 2017-12-19 00:00:00 2017-12-19 00:00:00 Office Visit Marivel Perez [facility] Encounter/[id number] [facility] 2017-11-26 00:00:00 2017-11-26 00:00:00 Office Visit Lisa Jimenes [facility] Behavioral Health Encounter/[id number] [facility] 2017-11-09 00:00:00 2017-11-09 00:00:00 Office Visit Ashley Steele [facility] Public Health Services Encounter/[id number] [facility] 2017-10-25 00:00:00 2017-10-25 00:00:00 Office Visit Ashley Steele [facility] Public Health Services Encounter/[id number] [facility] 2017-10-25 00:00:00 2017-10-25 00:00:00 Office Visit Marivel Perez [facility] Encounter/[id number] [facility] 2017-10-18 00:00:00 2017-10-18 00:00:00 Office Visit Nathaly Patel [facility] Encounter/[id number] [facility] 2017-10-17 00:00:00 2017-10-17 00:00:00 Office Visit Ashley Steele [facility] Public Health Services Encounter/[id number] [facility] 2017-09-26 00:00:00 2017-09-26 00:00:00 Office Visit Jules Ellen [facility] Encounter/[id number] [facility] 2017-09-13 00:00:00 2017-09-13 00:00:00 Office Visit Marivel Perez [facility] Encounter/[id number] [facility] 2017-09-06 00:00:00 2017-09-06 00:00:00 Office Visit Nathaly Patel [facility] Encounter/[id number] [facility] 2017-09-03 00:00:00 2017-09-03 00:00:00 Office Visit Marivel Vera Angela Garcia, Norma Guillory, Damaris [facility] Encounter/[id number] [facility] 2017-08-27 00:00:00 2017-08-27 00:00:00 Office Visit Paulette Guido [facility] Encounter/[id number] [facility] 2017-08-24 00:00:00 2017-08-24 00:00:00 Office Visit Paulette Guido [facility] Encounter/[id number] [facility] 2017-08-02 00:00:00 2017-08-02 00:00:00 Office Visit Maxwell Sanders [facility] Encounter/[id number] [facility] 2017-08-02 00:00:00 2017-08-02 00:00:00 Office Visit Maxwell Stern Norma [facility] Encounter/[id number] [facility] 2017-07-25 00:00:00 2017-07-25 00:00:00 Office Visit Francisca Brower [facility] Encounter/[id number] [facility] 2017-07-25 00:00:00 2017-07-25 00:00:00 Office Visit AltonJon [facility] DIGESTER OPERATOR Encounter/[id number] [facility] 2017-07-23 00:00:00 2017-07-23 00:00:00 Office Visit Mary Nevarez ra [facility] DIGESTER OPERATOR Encounter/[id number] [facility] 2017-07-23 00:00:00 2017-07-23 00:00:00 Office Visit Mary Nevarez ra [facility] DIGESTER OPERATOR Encounter/[id number] [facility] 2017-07-22 00:00:00 2017-07-22 00:00:00 Office Visit Wlii Bowles [facility] Encounter/[id number] [facility] 2017-07-22 00:00:00 2017-07-22 00:00:00 Office Visit Wili Bowles [facility] Encounter/[id number] [facility] 2017-07-19 00:00:00 2017-07-19 00:00:00 Office Visit Mary Nevarez ra [facility] DIGESTER OPERATOR Encounter/[id number] [facility] 2017-07-19 00:00:00 2017-07-19 00:00:00 Office Visit Wili Bowles [facility] Encounter/[id number] [facility] 2017-07-18 00:00:00 2017-07-18 00:00:00 Office Visit Wili Bowles [facility] Encounter/[id number] [facility] 2017-07-18 00:00:00 2017-07-18 00:00:00 Office Visit Mary Nevarez ra [facility] DIGESTER OPERATOR Encounter/[id number] [facility] 2017-07-18 00:00:00 2017-07-18 00:00:00 [facility] Encounter/[id number] [facility] 2017-07-17 00:00:00 2017-07-17 00:00:00 Office Visit Wili Sampson Nohemi [facility] Encounter/[id number] [facility] 2017-07-17 00:00:00 2017-07-17 00:00:00 Office Visit Wili Sampson Nohemi [facility] Encounter/[id number] [facility] 2017-07-17 00:00:00 2017-07-17 00:00:00 Office Visit Wili Sampson Nohemi [facility] Encounter/[id number] [facility] 2017-07-17 00:00:00 2017-07-17 00:00:00 Office Visit Wili Sampson Nohemi [facility] Encounter/[id number] [facility] 2017-07-17 00:00:00 2017-07-17 00:00:00 Office Visit Chai trinidad, Health Advocate Placido Palencia [facility] Encounter/[id number] [facility] 2017-07-17 00:00:00 2017-07-17 00:00:00 Office Visit Wili Bowles [facility] Encounter/[id number] [facility] 2017-07-17 00:00:00 2017-07-17 00:00:00 Office Visit Wili Sampson Cecilia Mosguera, Francisca Burgos, Wilda Snyder, Denzel Dumont, Leslee Rea [facility] Encounter/[id number] [facility] 2017-06-11 00:00:00 2017-06-11 00:00:00 Office Visit Marivel Vera Nancy [facility] Encounter/[id number] [facility] 2017-03-06 00:00:00 2017-03-06 00:00:00 Office Visit Marivel Vera Nancy [facility] Encounter/[id number] [facility] 2017-02-07 00:00:00 2017-02-07 00:00:00 Office Visit Marivel Vera Nancy [facility] Encounter/[id number] [facility] 2017-01-09 00:00:00 2017-01-09 00:00:00 Office Visit Stephanie guzmánorMarivel Nancy [facility] Encounter/[id number] [facility] 2016-10-03 00:00:00 2016-10-03 00:00:00 Office Visit Marivel Vera Velia [facility] Encounter/[id number] [facility] 2016-07-11 00:00:00 2016-07-11 00:00:00 Office Visit Marivel Vera Grace [facility] Encounter/[id number] [facility] 2016-06-30 00:00:00 2016-06-30 00:00:00 Office Visit Alison Lomax Behavioral Health Encounter/[id number] [facility] 2016-06-30 00:00:00 2016-06-30 00:00:00 Office Visit Alison Lomax LM Behavioral Health Encounter/[id number] [facility] 2016-06-23 00:00:00 2016-06-23 00:00:00 Office Visit Alison Nguyen Jacqueline [facility] Behavioral Health Encounter/[id number] [facility] 2016-06-12 00:00:00 2016-06-12 00:00:00 Office Visit Marivel Vera Nancy [facility] Encounter/[id number] [facility] 2016-06-09 00:00:00 2016-06-09 00:00:00 [facility]/[id number] [facility] 2016-06-02 00:00:00 2016-06-02 00:00:00 [facility] En[facility]/[id number] [facility] 2016-05-23 00:00:00 2016-05-23 00:00:00 Office Visit LomaxAlison Lenny Junior Behavioral Health Encounter/[id number] [facility] 2016-04-11 00:00:00 2016-04-11 00:00:00 Office Visit Marivel Vera Roxanna [facility] Encounter/[id number] [address] [place] [address] 2016-02-08 00:00:00 2016-02-08 00:00:00 Office Visit Marivel Vera Minerva Beltran, Araceli Reddy, Harrison [facility] Encounter/[id number] [facility] 2015-12-30 00:00:00 2015-12-30 00:00:00 Office Visit Marivel Perez [facility] Encounter/[id number] [facility] 2015-12-15 00:00:00 2015-12-15 00:00:00 Office Visit Bridget Duque Bryant [facility] Encounter/[id number] [facility] 2015-12-15 00:00:00 2015-12-15 00:00:00 Office Visit Marivel Vera Nancy [facility] Encounter/[id number] [facility] 2015-12-13 00:00:00 2015-12-13 00:00:00 Office Visit Bridget Duque Bryant [facility] Encounter/[id number] [facility] 2015-11-18 00:00:00 2015-11-18 00:00:00 Office Visit Maxwell Sanders [facility] Encounter/[id number] [facility] 2015-11-18 00:00:00 2015-11-18 00:00:00 Office Visit Maxwell Stern Kayla [facility] Encounter/[id number] [facility] 2015-11-17 00:00:00 2015-11-17 00:00:00 Office Visit Marivel Perez Family Practice Encounter/[id number] [facility] 2015-11-17 00:00:00 2015-11-17 00:00:00 Office Visit Marivel Vera Nancy [facility] Encounter/[id number] [facility] 2015 00:00:00 2015 00:00:00 Office Visit ShaniqueFelicia [facility] Encounter/[id number] [facility] 2015-10-11 00:00:00 2015-10-11 00:00:00 Office Visit Agnes Esquivel [facility] Encounter/[id number] [facility] 2015-10-04 00:00:00 2015-10-04 00:00:00 Office Visit Marivel Vera Nancy [facility] Encounter/[id number] [facility] 2015-08-09 00:00:00 2015-08-09 00:00:00 Office Visit Marivel Vera Nancy [facility] Encounter/[id number] [facility] 2015-07-12 00:00:00 2015-07-12 00:00:00 Office Visit Marivel Vera Nancy [facility] Encounter/[id number] [facility] 2015-07-12 00:00:00 2015-07-12 00:00:00 Office Visit Marivel Vera Adam Govea, Nancy [facility] Encounter/[id number] [facility] 2015-06-16 00:00:00 2015-06-16 00:00:00 Office Visit Shima Jolly Yesenia [facility] Encounter/[id number] [facility] 2015-06-11 00:00:00 2015-06-11 00:00:00 Office Visit Jesenia Galvan [facility] Encounter/[id number] [facility] 2015-06-11 00:00:00 2015-06-11 00:00:00 Office Visit Status, Fax [facility] Encounter/[id number] [facility] 2015-06-11 00:00:00 2015-06-11 00:00:00 Office Visit Status, Fax [facility] Encounter/[id number] [facility] 2015-06-09 00:00:00 2015-06-09 00:00:00 Office Visit Nomi Sinha [facility] Encounter/[id number] [facility] 2015-06-09 00:00:00 2015-06-09 00:00:00 Office Visit Nomi Sinha [facility] Encounter/[id number] [facility] 2015-06-09 00:00:00 2015-06-09 00:00:00 Office Visit Nomi Sinha [facility] Encounter/[id number] [facility] 2015-06-09 00:00:00 2015-06-09 00:00:00 Office Visit Nomi Sinha [facility] Encounter/[id number] [facility] 2015-06-09 00:00:00 2015-06-09 00:00:00 Office Visit Nomi Sinha [facility] Encounter/[id number] [facility] 2015-06-09 00:00:00 2015-06-09 00:00:00 Office Visit Nomi Sinha [facility] Encounter/[id number] [facility] 2015-06-09 00:00:00 2015-06-09 00:00:00 Office Visit Nomi Hammond Hilda Cruz, Ledis [facility][id number] [facility]:00 2015-05-03 00:00:00 [facility] Visit [facility] Encounter/[id number] [facility] 2015-05-03 00:00:00 2015-05-03 00:00:00 Office Visit Marivel Vera Nancy [facility] Encounter/[id number] [facility] 2015-04-20 00:00:00 2015-04-20 00:00:00 Office Visit Marivel Vera Nancy [facility] Encounter/[id number] [facility] 2015-04-05 00:00:00 2015-04-05 00:00:00 Office Visit [facility] Encounter/[id number] [facility] 2015-04-05 00:00:00 2015-04-05 00:00:00 Office Visit Alba Duarte [facility] Encounter/[id number] [facility] 2015-04-05 00:00:00 2015-04-05 00:00:00 Office Visit Marivel Vera Nancy [facility] Encounter/[id number] [facility] 2014-11-26 00:00:00 2014-11-26 00:00:00 Office Visit Marivel Perez [facility] Encounter/[id number] [facility] 2014-11-26 00:00:00 2014-11-26 00:00:00 Office Visit Marivel Vera Valerie [facility] Encounter/[id number] [facility] 2014-11-26 00:00:00 2014-11-26 00:00:00 Office Visit [facility] Encounter/[id number] [facility] 2014-10-30 00:00:00 2014-10-30 00:00:00 Office Visit Jamar Avalos [facility] Encounter/[id number] [facility] 2014-10-22 00:00:00 2014-10-22 00:00:00 Office Visit Gely Shabazz [facility] Encounter/[id number] [facility] Results Test Description Test Time Test Comments Results Result Comments Source hepatitis B surface antigen 2018-12-10 10:07:00 Test Item hepatitis B surface antigen (test code = 79) Negative Negative [facility]althyroid stimulating hormone, [id number] 10:07:00* Test Item Value Reference Range Interpretation Comments thyroid stimulating hormone, serum (test code = 29) 1.520 u[iU]/ mL 0.450-4.500 [facility]hepatitis C antibody, [id number] 10:07:00* Test Item Value Reference Range Interpretation Comments hepatitis C antibody, serum (test code = 2722) <0.1 0.0-0.9 [facility]CM[facility] (Chemiluminescent Microparticle Immuno Assay) 2018-12-10 10:07:00* Test Item Value Reference Range Interpretation Comments HIV-CMIA (Chemiluminescent Microparticle Immuno Assay) (test code = 288108) Non Reactive Non Reactive [facility] Hospitalrapid plasma reagin antibody, [id number] 10:07:00* Test Item Value Reference Range Interpretation Comments rapid plasma reagin antibody, serum (test code = 308) Non Reacti ve Non Reactive [facility] Hospitalhemoglobin A1C, blood, as % of total [id number] 10:07:00* Test Item Value Reference Range Interpretation Comments hemoglobin A1C, blood, as % of total hemoglobin (test code = 4548-4) 5.3 % 4.8-5.6 [facility]activated partial thromboplastin time (aPTT)2018-12-10 10:07:00* Test Item Value Reference Range Interpretation Comments activated partial thromboplastin time (aPTT) (test code = 187101) 3 0 s 24-33 [facility]prothrombin [facility] (patient)2018-12-10 10:07:00* Test Item Value Reference Range Interpretation Comments prothrombin time (patient) (test code = 50) 10.5 s 9.1-12.0 [facility]international normalized ratio (INR)2018-12-10 10:07:00* Test Item Value Reference Range Interpretation Comments international normalized ratio (INR) (test code = 309) 1.0 0.8-1.2 [facility], [id number] 10:07:00* Test Item Value Reference Range Interpretation Comments LDL cholesterol, serum (test code = 2089-1) 92 mg/dL 0-99 [facility]very low density qsfpjeeipwga0260-85-18 10:07:00* Test Item Value Reference Range Interpretation Comments very low density lipoproteins (test code = 2548) 11 mg/dL 5-40 [facility]HDL cholesterol, [id number] 10:07:00* Test Item Value Reference Range Interpretation Comments HDL cholesterol, serum (test code = 2085-9) 96 mg/dL >39 [facility]triglyceride, serum, [id number] 10:07:00* Test Item Value Reference Range Interpretation Comments triglyceride, serum, fasting (test code = 2571-8) 54 mg/dL 0-14 9 [facility]cholesterol, [id number] 10:07:00* Test Item Value Reference Range Interpretation Comments cholesterol, serum (test code = 2093-3) 199 mg/dL 100-199 [facility]alanine aminotransferase (SGPT), [id number] 10:07:00 * Test Item Value Reference Range Interpretation Comments alanine aminotransferase (SGPT), serum (test code = 40) 26 1/L 0-32 [facility] Hospitalaspartate aminotransferase (SGOT), [id number] 10:07:00* Test Item Value Reference Range Interpretation Comments aspartate aminotransferase (SGOT), serum (test code = 39) 26 1/L 0-40 [facility] Hospitalalkaline phosphatase, [id number] 10:07:00* Test Item Value Reference Range Interpretation Comments alkaline phosphatase, serum (test code = 3) 65 1/L 39-117 [facility]bilirubin, serum, [id number] 10:07:00* Test Item Value Reference Range Interpretation Comments bilirubin, serum, total (test code = 43) 0.4 mg/dL 0.0-1.2 [facility] Hospitalalbumin/globulin ratio, [id number] 10:07:00* Test Item Value Reference Range Interpretation Comments albumin/globulin ratio, serum (test code = 146) 1.9 1.2-2. 2 [facility] Hospitalglobulin, [id number] 10:07:00* Test Item Value Reference Range Interpretation Comments globulin, serum (test code = 3059) 2.4 1.5-4.5 [facility] Healthalbumin, [id number] 10:07:00* Test Item Value Reference Range Interpretation Comments albumin, serum (test code = 2) 4.6 g/dL 3.5-5.5 [facility] Healthprotein, total, [id number] 10:07:00* Test Item Value Reference Range Interpretation Comments protein, total, serum (test code = 36) 7.0 g/dL 6.0-8.5 [facility] Healthcalcium, [id number] 10:07:00* Test Item Value Reference Range Interpretation Comments calcium, serum (test code = 11) 9.6 mg/dL 8.7-10.2 [facility]carbon dioxide, venous [id number] 10:07:00* Test Item Value Reference Range Interpretation Comments carbon dioxide, venous blood (test code = 15) 22 mmol/L 20-29 [facility] Healthchloride, [id number] 10:07:00* Test Item Value Reference Range Interpretation Comments chloride, serum (test code = 13) 101 mmol/L 96-106 [facility]potassium, [id number] 10:07:00* Test Item Value Reference Range Interpretation Comments potassium, serum (test code = 35) 4.7 mmol/L 3.5-5.2 [facility]alsodium, [id number] 10:07:00* Test Item Value Reference Range Interpretation Comments sodium, serum (test code = 159) 137 mmol/L 134-144 [facility] Hospitalurea nitrogen/creatinine ratio, [id number] 10:07:00 * Test Item Value Reference Range Interpretation Comments urea nitrogen/creatinine ratio, serum (test code = 2462) 13 02-10 [facility] HealtheGFR if Mevqlyyz2170-50-81 10:07:00* Test Item Value Reference Range Interpretation Comments eGFR if (test code = 197132) 122 mL/min/((173/100) .m2) >59 [facility] HospitalEstimated Glomerular Filtration Rate (calc)2018-12-10 10:07:00* Test Item Value Reference Range Interpretation Comments Estimated Glomerular Filtration Rate (calc) (test code = 76231) 106 mL/min/((173/100).m2) >59 [facility] Healthcreatinine, [id number] 10:07:00* Test Item Value Reference Range Interpretation Comments creatinine, serum (test code = 18) 0.68 mg/dL 0.57-1.00 [facility] Hospitalurea nitrogen, [id number] 10:07:00* Test Item Value Reference Range Interpretation Comments urea nitrogen, blood (test code = 9) 9 mg/dL 6-24 [facility] Hospitalblood glucose, [id number] 10:07:00* Test Item Value Reference Range Interpretation Comments blood glucose, random (test code = 8) 92 mg/dL 65-99 [facility] Hospitalimmature granulocytes, percentage of total cells, blood 2018-12-10 10:07:00* Test Item Value Reference Range Interpretation Comments immature granulocytes, percentage of total cells, bloo d (test code = 944568) 0 % [facility] Hospitalbasophil count, izwbswkn7267-39-72 10:07:00* Test Item Value Reference Range Interpretation Comments basophil count, absolute (test code = 33369) 0.0 x10E3/uL 0.0-0.2 [facility] HospitalEosinophil Absolute Nsbgf4019-25-51 10:07:00* Test Item Value Reference Range Interpretation Comments Eosinophil Absolute Count (test code = 937624) 0.2 X10E3/UL 0.0-0.4 [facility] Hospitalmonocyte count, blood, oetymwgfa9277-20-89 10:07:00* Test Item Value Reference Range Interpretation Comments monocyte count, blood, automated (test code = 3076) 0.3 X10E3/UL 0. 1-0.9 [facility] Hospitallymphocyte count, blood, rkfvitoqw2697-75-37 10:07:00* Test Item Value Reference Range Interpretation Comments lymphocyte count, blood, automated (test code = 3074) 1.5 X10E3/UL 0.7-3.1 [facility] HospitalAbsolute Joxsyuuwbgq9365-40-30 10:07:00* Test Item Value Reference Range Interpretation Comments Absolute Neutrophils (test code = 04381) 3.1 X10E3/UL 1.4-7.0 [facility] Hospitalbasophils as percent of blood rvysngjrlk8526-54-86 10:07:00* Test Item Value Reference Range Interpretation Comments basophils as percent of blood leukocytes (test code = 2426) 1 % [facility]aleosinophils as percent of blood rqnwsmozjh2745-77-40 10:07:00* Test Item Value Reference Range Interpretation Comments eosinophils as percent of blood leukocytes (test code = 4170) 3 % [facility] Healthmonocytes as percent of blood ilcmmcqjkm6636-73-27 10:07:00* Test Item Value Reference Range Interpretation Comments monocytes as percent of blood leukocytes (test code = 2421) 6 % [facility]allymphocytes as percent of blood fisgkxmudx9346-53-84 10:07:00* Test Item Value Reference Range Interpretation Comments lymphocytes as percent of blood leukocytes (test code = 317) 29 % [facility] Hospitalneutrophils as percent of blood ypiiwqbpqq0368-44-84 10:07:00* Test Item Value Reference Range Interpretation Comments neutrophils as percent of blood leukocytes (test code = 316) 61 % [facility] Hospitalplatelet [id number] 10:07:00* Test Item Value Reference Range Interpretation Comments platelet count (test code = 66) 314 X10E3/UL 150-450 [facility] Hospitalred blood cell distribution [id number] 10:07:00* Test Item Value Reference Range Interpretation Comments red blood cell distribution width (test code = 1030) 14.0 % 1 2.3-15.4 [facility] corpuscular hemoglobin concentration, [id number] 10:07:00* Test Item Value Reference Range Interpretation Comments mean corpuscular hemoglobin concentration, RBC (test code = 1029) 32.8 G/DL 31.5-35.7 [facility] corpuscular hemoglobin, [id number] 10:07:00* Test Item Value Reference Range Interpretation Comments mean corpuscular hemoglobin, RBC (test code = 1031) 30.6 pg 26 .6-33.0 [facility] corpuscular volume, [id number] 10:07:00* Test Item Value Reference Range Interpretation Comments mean corpuscular volume, RBC (test code = 315) 93 fL 79-97 [facility] Hospitalhematocrit, [id number] 10:07:00* Test Item Value Reference Range Interpretation Comments hematocrit, blood (test code = 64) 38.1 % 34.0-46.6 [facility] Hospitalhemoglobin, [id number] 10:07:00* Test Item Value Reference Range Interpretation Comments hemoglobin, blood (test code = 65) 12.5 g/dL 11.1-15.9 [facility] Hospitalerythrocyte (RBC) [id number] 10:07:00* Test Item Value Reference Range Interpretation Comments erythrocyte (RBC) count (test code = 67) 4.09 X10E6/UL 3.77-5.28 [facility] Hospitalleukocyte count, [id number] 10:07:00* Test Item Value Reference Range Interpretation Comments leukocyte count, blood (test code = 68) 5.0 X10E3/UL 3.4-10.8 [facility] HospitalNeisseria gonorrhoeae DNA [id number] 09:25:00* Test Item Value Reference Range Interpretation Comments Neisseria gonorrhoeae DNA probe (test code = 02823-4) Negative Negative [facility] Hospitalchlamydia DNA [id number] 09:25:00* Test Item Value Reference Range Interpretation Comments chlamydia DNA probe (test code = 74353-5) Negative Negative [facility] Hospitaltrichomonas vaginalis, [id number] 09:25:00* Test Item Value Reference Range Interpretation Comments trichomonas vaginalis, urine (test code = 3887) Negative Negati ve [facility] Hospitalspecific gravity, [id number] 08:19:42* Test Item Value Reference Range Interpretation Comments specific gravity, urine (test code = 325) 1.015 [facility] HospitalpH, urine, bqhziiinrbrcsdqf5503-90-14 08:19:42* Test Item Value Reference Range Interpretation Comments pH, urine, semiquantitative (test code = 324) 6.5 [facility] Hospitalbeta HCG, urine, gyezhjqxeqneyiev2598-19-98 08:19:42* Test Item Value Reference Range Interpretation Comments beta HCG, urine, semiquantitative (test code = 2106-3) negative [facility] Hospitalglucose, urine, uruqpisneuziovtr1281-25-27 08:19:42* Test Item Value Reference Range Interpretation Comments glucose, urine, semiquantitative (test code = 123) negative [facility] Healthbilirubin, [id number] 08:19:42* Test Item Value Reference Range Interpretation Comments bilirubin, urine (test code = 319) negative [facility] Healthketones, urine, by test [id number] 08:19:42* Test Item Value Reference Range Interpretation Comments ketones, urine, by test strip (test code = 322) negative [facility] Hospitalblood in urine (hemoglobin) by ogrttuua1701-59-68 08:19:42* Test Item Value Reference Range Interpretation Comments blood in urine (hemoglobin) by dipstick (test code = 4998) negative [facility] Hospitalprotein, urine, semiquantitative (dipstick)2018-12-10 08:19:42* Test Item Value Reference Range Interpretation Comments protein, urine, semiquantitative (dipstick) (test code = 1753-3) ne gative [facility] Hospitalurobilinogen, urine, semiquantitative (dipstick) 2018-12-10 08:19:42* Test Item Value Reference Range Interpretation Comments urobilinogen, urine, semiquantitative (dipstick) (test code = 326) negative [facility] Hospitalnitrite, urine, ukgnlvkvargyvazl3864-91-83 08:19:42* Test Item Value Reference Range Interpretation Comments nitrite, urine, semiquantitative (test code = 323) negative [facility] Hospitalleukocyte esterase, urine, by glbiuwun8355-45-66 08:19:42 * Test Item Value Reference Range Interpretation Comments leukocyte esterase, urine, by dipstick (test code = 327) negative [facility] Hospitalappearance, [id number] 08:19:42* Test Item Value Reference Range Interpretation Comments appearance, urine (test code = 328) clear [facility] Healthurine [id number] 08:19:42* Test Item Value Reference Range Interpretation Comments urine color (test code = 2751) yellow [facility] HospitalQuantiferon Gold TB blood test for tuberculosis screening 2018-05-28 11:14:00* Test Item Value Reference Range Interpretation Comments Quantiferon Gold TB blood test for tuberculosis screen ing (test code = 784443) Negative Negative [facility] Hospitalinfluenza B virus wmzgkfv3945-91-74 09:12:52* Test Item Value Reference Range Interpretation Comments influenza B virus antigen (test code = 12050) negative [facility] Hospitalinfluenza virus A vpltukd3720-33-85 09:12:52* Test Item Value Reference Range Interpretation Comments influenza virus A antigen (test code = 3413) negative [facility] HospitalNeisseria gonorrhoeae DNA feelr0913-74-45 10:19:00* Test Item Value Reference Range Interpretation Comments Neisseria gonorrhoeae DNA probe (test code = 24700-3) Negative Negative [facility] Hospitalchlamydia DNA [id number] 10:19:00* Test Item Value Reference Range Interpretation Comments chlamydia DNA probe (test code = 90618-1) Negative Negative [facility] Hospitaltrichomonas vaginalis, [id number] 10:12:00* Test Item Value Reference Range Interpretation Comments trichomonas vaginalis, urine (test code = 3887) Negative Negati ve [facility] HospitalNeisseria gonorrhoeae DNA [id number] 10:10:00* Test Item Value Reference Range Interpretation Comments Neisseria gonorrhoeae DNA probe (test code = 81672-7) Negative Negative [facility] Hospitalchlamydia DNA [id number] 10:10:00* Test Item Value Reference Range Interpretation Comments chlamydia DNA probe (test code = 88619-7) Negative Negative [facility] Hospitalhepatitis B surface [id number] 09:51:00* Test Item Value Reference Range Interpretation Comments hepatitis B surface antigen (test code = 79) Negative Negative [facility] Hospitalthyroid stimulating hormone, ghdyn6997-52-64 09:51:00* Test Item Value Reference Range Interpretation Comments thyroid stimulating hormone, serum (test code = 29) 1.800 u[iU]/ mL 0.450-4.500 [facility] Hospitalrapid plasma reagin antibody, [id number] 09:51:00* Test Item Value Reference Range Interpretation Comments rapid plasma reagin antibody, serum (test code = 308) Non Reacti ve Non Reactive [facility] Hospitalhepatitis C antibody, [id number] 09:51:00* Test Item Value Reference Range Interpretation Comments hepatitis C antibody, serum (test code = 2722) 0.1 0.0-0.9 [facility]HIV-CMIA (Chemiluminescent Microparticle Immuno Assay) 2017-07-17 09:51:00* Test Item Value Reference Range Interpretation Comments HIV-CMIA (Chemiluminescent Microparticle Immuno Assay) (test code = 642848) Non Reactive Non Reactive [facility] Hospitalvitamin D 25-hydroxy, pzpdu7685-52-39 09:51:00* Test Item Value Reference Range Interpretation Comments vitamin D 25-hydroxy, serum (test code = 5875) 30.9 ng/mL 30.0-10 0.0 [facility] Hospitalrubella antibody, serum, [id number] 09:51:00* Test Item Value Reference Range Interpretation Comments rubella antibody, serum, IgG (test code = 81) 1.67 Immune > 0.99 [facility] HospitalLDL cholesterol, jnrji3912-85-68 09:51:00* Test Item Value Reference Range Interpretation Comments LDL cholesterol, serum (test code = 2089-1) 98 mg/dL 0-99 [facility] low density lwsfjzmwxpao3952-02-91 09:51:00* Test Item Value Reference Range Interpretation Comments very low density lipoproteins (test code = 2548) 8 mg/dL 5-40 [facility] HospitalHDL cholesterol, [id number] 09:51:00* Test Item Value Reference Range Interpretation Comments HDL cholesterol, serum (test code = 2085-9) 98 mg/dL >39 [facility] Hospitaltriglyceride, serum, [id number] 09:51:00* Test Item Value Reference Range Interpretation Comments triglyceride, serum, fasting (test code = 2571-8) 42 mg/dL 0-14 9 [facility]cholesterol, [id number] 09:51:00* Test Item Value Reference Range Interpretation Comments cholesterol, serum (test code = 2093-3) 204 mg/dL 100-199 H [facility]alanine aminotransferase (SGPT), [id number] 09:51:00 * Test Item Value Reference Range Interpretation Comments alanine aminotransferase (SGPT), serum (test code = 40) 27 1/L 0-32 [facility] Hospitalaspartate aminotransferase (SGOT), [id number] 09:51:00* Test Item Value Reference Range Interpretation Comments aspartate aminotransferase (SGOT), serum (test code = 39) 27 1/L 0-40 [facility] Healthalkaline phosphatase, [id number] 09:51:00* Test Item Value Reference Range Interpretation Comments alkaline phosphatase, serum (test code = 3) 60 1/L 39-117 [facility] Healthbilirubin, serum, [id number] 09:51:00* Test Item Value Reference Range Interpretation Comments bilirubin, serum, total (test code = 43) 0.3 mg/dL 0.0-1.2 [facility] Healthalbumin/globulin ratio, [id number] 09:51:00* Test Item Value Reference Range Interpretation Comments albumin/globulin ratio, serum (test code = 146) 1.9 1.2-2. 2 [facility] Healthglobulin, [id number] 09:51:00* Test Item Value Reference Range Interpretation Comments globulin, serum (test code = 3059) 2.5 1.5-4.5 [facility] Healthalbumin, [id number] 09:51:00* Test Item Value Reference Range Interpretation Comments albumin, serum (test code = 2) 4.7 g/dL 3.5-5.5 [facility] Healthprotein, total, [id number] 09:51:00* Test Item Value Reference Range Interpretation Comments protein, total, serum (test code = 36) 7.2 g/dL 6.0-8.5 [facility] Healthcalcium, [id number] 09:51:00* Test Item Value Reference Range Interpretation Comments calcium, serum (test code = 11) 9.2 mg/dL 8.7-10.2 [facility] Hospitalcarbon dioxide, venous [id number] 09:51:00* Test Item Value Reference Range Interpretation Comments carbon dioxide, venous blood (test code = 15) 19 mmol/L 18-29 [facility] Healthchloride, [id number] 09:51:00* Test Item Value Reference Range Interpretation Comments chloride, serum (test code = 13) 99 mmol/L 96-106 [facility] Healthpotassium, hesqy9084-95-91 09:51:00* Test Item Value Reference Range Interpretation Comments potassium, serum (test code = 35) 4.3 mmol/L 3.5-5.2 [facility]alsodium, [id number] 09:51:00* Test Item Value Reference Range Interpretation Comments sodium, serum (test code = 159) 138 mmol/L 134-144 [facility] Hospitalurea nitrogen/creatinine ratio, vwycb5823-83-29 09:51:00 * Test Item Value Reference Range Interpretation Comments urea nitrogen/creatinine ratio, serum (test code = 2462) 18 9-23 [facility] HealtheGFR if Njqujsjx8546-51-93 09:51:00* Test Item Value Reference Range Interpretation Comments eGFR if (test code = 565892) 119 mL/min/((173/100) .m2) >59 [facility] HospitalEstimated Glomerular Filtration Rate (calc)2017-07-17 09:51:00* Test Item Value Reference Range Interpretation Comments Estimated Glomerular Filtration Rate (calc) (test code = 76241) 103 mL/min/((173/100).m2) >59 [facility] Hospitalcreatinine, [id number] 09:51:00* Test Item Value Reference Range Interpretation Comments creatinine, serum (test code = 18) 0.72 mg/dL 0.57-1.00 [facility], [id number] 09:51:00* Test Item Value Reference Range Interpretation Comments urea nitrogen, blood (test code = 9) 13 mg/dL 6-24 [facility] glucose, [id number] 09:51:00* Test Item Value Reference Range Interpretation Comments blood glucose, random (test code = 8) 92 mg/dL 65-99 [facility]immature granulocytes, percentage of total cells, blood 2017-07-17 09:51:00* Test Item Value Reference Range Interpretation Comments immature granulocytes, percentage of total cells, bloo d (test code = 591205) 0 % [facility]basophil count, [id number] 09:51:00* Test Item Value Reference Range Interpretation Comments basophil count, absolute (test code = 22553) 0.0 x10E3/uL 0.0-0.2 [facility] HospitalEosinophil Absolute [id number] 09:51:00* Test Item Value Reference Range Interpretation Comments Eosinophil Absolute Count (test code = 926711) 0.1 X10E3/UL 0.0-0.4 [facility]monocyte count, blood, thtvmjqqg6090-64-44 09:51:00* Test Item Value Reference Range Interpretation Comments monocyte count, blood, automated (test code = 3076) 0.3 X10E3/UL 0. 1-0.9 [facility]allymph[facility] count, blood, [id number] 09:51:00* Test Item Value Reference Range Interpretation Comments lymphocyte count, blood, automated (test code = 3074) 1.2 X10E3/UL 0.7-3.1 [facility] HospitalAbsolute Titjlvktupx1361-52-32 09:51:00* Test Item Value Reference Range Interpretation Comments Absolute Neutrophils (test code = 51962) 2.7 X10E3/UL 1.4-7.0 [facility]basophils as percent of blood [id number] 09:51:00* Test Item Value Reference Range Interpretation Comments basophils as percent of blood leukocytes (test code = 2426) 1 % [facility]aleosinophils as percent of blood backycdqwt6390-21-57 09:51:00* Test Item Value Reference Range Interpretation Comments eosinophils as percent of blood leukocytes (test code = 4170) 3 % [facility]mon[facility] as percent of blood [id number] 09:51:00* Test Item Value Reference Range Interpretation Comments monocytes as percent of blood leukocytes (test code = 2421) 7 % [facility]allymphocytes as percent of blood [id number] 09:51:00* Test Item Value Reference Range Interpretation Comments lymphocytes as percent of blood leukocytes (test code = 317) 29 % [facility]neutrophils as percent of blood qpszahhwgj9386-66-86 09:51:00* Test Item Value Reference Range Interpretation Comments neutrophils as percent of blood leukocytes (test code = 316) 60 % [facility] Hospitalplatelet [id number] 09:51:00* Test Item Value Reference Range Interpretation Comments platelet count (test code = 66) 306 X10E3/UL 150-379 [facility] Hospitalred blood cell distribution rryfu5681-53-11 09:51:00* Test Item Value Reference Range Interpretation Comments red blood cell distribution width (test code = 1030) 14.5 % 1 2.3-15.4 [facility], [id number] 09:51:00* Test Item Value Reference Range Interpretation Comments mean corpuscular hemoglobin concentration, RBC (test code = 1029) 32.7 G/DL 31.5-35.7 [facility] corpus[facility] hemoglobin, [id number] 09:51:00* Test Item Value Reference Range Interpretation Comments mean corpuscular hemoglobin, RBC (test code = 1031) 30.2 pg 26 .6-33.0 [facility] corpus[facility] volume, [id number] 09:51:00* Test Item Value Reference Range Interpretation Comments mean corpuscular volume, RBC (test code = 315) 92 fL 79-97 [facility]hematocrit, [id number] 09:51:00* Test Item Value Reference Range Interpretation Comments hematocrit, blood (test code = 64) 36.7 % 34.0-46.6 [facility]hemoglobin, [id number] 09:51:00* Test Item Value Reference Range Interpretation Comments hemoglobin, blood (test code = 65) 12.0 g/dL 11.1-15.9 [facility] Hospitalerythrocyte (RBC) [id number] 09:51:00* Test Item Value Reference Range Interpretation Comments erythrocyte (RBC) count (test code = 67) 3.98 X10E6/UL 3.77-5.28 [facility]leukocyte count, [id number] 09:51:00* Test Item Value Reference Range Interpretation Comments leukocyte count, blood (test code = 68) 4.3 X10E3/UL 3.4-10.8 [facility] Hospitalbeta HCG, urine, [id number] 08:22:12* Test Item Value Reference Range Interpretation Comments beta HCG, urine, semiquantitative (test code = 2106-3) negative [facility] Hospitalspecific gravity, [id number] 08:22:12* Test Item Value Reference Range Interpretation Comments specific gravity, urine (test code = 325) 1.020 [facility] HospitalpH, urine, eqgyjbfavyypvmqz8315-76-13 08:22:12* Test Item Value Reference Range Interpretation Comments pH, urine, semiquantitative (test code = 324) 6.0 [facility] Hospitalglucose, urine, sijdapwgvomguonp6841-98-66 08:22:12* Test Item Value Reference Range Interpretation Comments glucose, urine, semiquantitative (test code = 123) negative [facility] Healthbilirubin, [id number] 08:22:12* Test Item Value Reference Range Interpretation Comments bilirubin, urine (test code = 319) negative [facility] Healthketones, urine, by test [id number] 08:22:12* Test Item Value Reference Range Interpretation Comments ketones, urine, by test strip (test code = 322) negative [facility]blood in urine (hemoglobin) by mnbgjkvx3612-63-57 08:22:12* Test Item Value Reference Range Interpretation Comments blood in urine (hemoglobin) by dipstick (test code = 4998) negative [facility] Healthprotein, urine, semiquantitative (dipstick)2017-07-17 08:22:12* Test Item Value Reference Range Interpretation Comments protein, urine, semiquantitative (dipstick) (test code = 1753-3) ne gative [facility] Hospitalurobilinogen, urine, semiquantitative (dipstick) 2017-07-17 08:22:12* Test Item Value Reference Range Interpretation Comments urobilinogen, urine, semiquantitative (dipstick) (test code = 326) negative [facility] Hospitalnitrite, urine, psuofhksiebcahrl1850-26-05 08:22:12* Test Item Value Reference Range Interpretation Comments nitrite, urine, semiquantitative (test code = 323) negative [facility] Hospitalleukocyte esterase, urine, by srrwsrqg1158-10-74 08:22:12 * Test Item Value Reference Range Interpretation Comments leukocyte esterase, urine, by dipstick (test code = 327) negative [facility] Hospitalappearance, [id number] 08:22:12* Test Item Value Reference Range Interpretation Comments appearance, urine (test code = 328) clear [facility] Healthurine [id number] 08:22:12* Test Item Value Reference Range Interpretation Comments urine color (test code = 2751) yellow [facility] Hospitalhepatitis B surface [id number] 16:14:00* Test Item Value Reference Range Interpretation Comments hepatitis B surface antigen (test code = 79) Negative Negative [facility] Hospitalblood glucose, [id number] 16:14:00* Test Item Value Reference Range Interpretation Comments blood glucose, random (test code = 8) 90 mg/dL 65-99 [facility] Hospitalthyroid stimulating hormone, dmoso9604-08-01 16:14:00* Test Item Value Reference Range Interpretation Comments thyroid stimulating hormone, serum (test code = 29) 1.720 u[iU]/ mL 0.450-4.500 [facility] Hospitalrapid plasma reagin antibody, [id number] 16:14:00* Test Item Value Reference Range Interpretation Comments rapid plasma reagin antibody, serum (test code = 308) Non Reacti ve Non Reactive [facility] HospitalHIV-CMIA (Chemiluminescent Microparticle Immuno Assay) 2015-06-09 16:14:00* Test Item Value Reference Range Interpretation Comments HIV-CMIA (Chemiluminescent Microparticle Immuno Assay) (test code = 361655) Non Reactive Non Reactive [facility] Hospitalrubella antibody, serum, [id number] 16:14:00* Test Item Value Reference Range Interpretation Comments rubella antibody, serum, IgG (test code = 81) 1.57 Immune > 0.99 [facility] HospitalNeisseria gonorrhoeae DNA [id number] 16:14:00* Test Item Value Reference Range Interpretation Comments Neisseria gonorrhoeae DNA probe (test code = 89332-2) Negative Negative [facility] Hospitalchlamydia DNA [id number] 16:14:00* Test Item Value Reference Range Interpretation Comments chlamydia DNA probe (test code = 92455-4) Negative Negative [facility] Hospitalimmature granulocytes, percentage of total cells, blood 2015-06-09 16:14:00* Test Item Value Reference Range Interpretation Comments immature granulocytes, percentage of total cells, bloo d (test code = 046911) 0 % [facility] Hospitalbasophil count, pmwisjus2853-42-49 16:14:00* Test Item Value Reference Range Interpretation Comments basophil count, absolute (test code = 14973) 0.0 x10E3/uL 0.0-0.2 [facility] HospitalEosinophil Absolute [id number] 16:14:00* Test Item Value Reference Range Interpretation Comments Eosinophil Absolute Count (test code = 641976) 0.2 X10E3/UL 0.0-0.4 [facility] Healthmonocyte count, blood, ekhkpceyp9830-28-54 16:14:00* Test Item Value Reference Range Interpretation Comments monocyte count, blood, automated (test code = 3076) 0.5 X10E3/UL 0. 1-0.9 [facility]allymphocyte count, blood, [id number] 16:14:00* Test Item Value Reference Range Interpretation Comments lymphocyte count, blood, automated (test code = 3074) 1.9 X10E3/UL 0.7-3.1 [facility] HospitalAbsolute Ubsqmhvgomp5450-44-18 16:14:00* Test Item Value Reference Range Interpretation Comments Absolute Neutrophils (test code = 12707) 6.3 X10E3/UL 1.4-7.0 [facility] Hospitalbasophils as percent of blood ppehqkxfxl4551-78-53 16:14:00* Test Item Value Reference Range Interpretation Comments basophils as percent of blood leukocytes (test code = 2426) 0 % [facility] Hospitaleosinophils as percent of blood zavebtxscn6149-97-92 16:14:00* Test Item Value Reference Range Interpretation Comments eosinophils as percent of blood leukocytes (test code = 4170) 2 % [facility] Healthmonocytes as percent of blood ykxeiqywzj8585-95-82 16:14:00* Test Item Value Reference Range Interpretation Comments monocytes as percent of blood leukocytes (test code = 2421) 6 % [facility]allymphocytes as percent of blood crffmhmzoy6845-53-51 16:14:00* Test Item Value Reference Range Interpretation Comments lymphocytes as percent of blood leukocytes (test code = 317) 21 % [facility] Hospitalneutrophils as percent of blood jhhvjtaxse6210-94-73 16:14:00* Test Item Value Reference Range Interpretation Comments neutrophils as percent of blood leukocytes (test code = 316) 71 % [facility] Hospitalplatelet lebpn2739-17-24 16:14:00* Test Item Value Reference Range Interpretation Comments platelet count (test code = 66) 317 X10E3/UL 150-379 [facility] Hospitalred blood cell distribution [id number] 16:14:00* Test Item Value Reference Range Interpretation Comments red blood cell distribution width (test code = 1030) 14.8 % 1 2.3-15.4 [facility] corpuscular hemoglobin concentration, [id number] 16:14:00* Test Item Value Reference Range Interpretation Comments mean corpuscular hemoglobin concentration, RBC (test code = 1029) 33.5 G/DL 31.5-35.7 [facility] corpuscular hemoglobin, [id number] 16:14:00* Test Item Value Reference Range Interpretation Comments mean corpuscular hemoglobin, RBC (test code = 1031) 30.0 pg 26 .6-33.0 [facility] corpuscular volume, [id number] 16:14:00* Test Item Value Reference Range Interpretation Comments mean corpuscular volume, RBC (test code = 315) 90 fL 79-97 [facility] Hospitalhematocrit, fyqyh3234-75-00 16:14:00* Test Item Value Reference Range Interpretation Comments hematocrit, blood (test code = 64) 36.7 % 34.0-46.6 [facility] Hospitalhemoglobin, [id number] 16:14:00* Test Item Value Reference Range Interpretation Comments hemoglobin, blood (test code = 65) 12.3 g/dL 11.1-15.9 [facility] Hospitalerythrocyte (RBC) [id number] 16:14:00* Test Item Value Reference Range Interpretation Comments erythrocyte (RBC) count (test code = 67) 4.10 X10E6/UL 3.77-5.28 [facility] Hospitalleukocyte count, [id number] 16:14:00* Test Item Value Reference Range Interpretation Comments leukocyte count, blood (test code = 68) 8.9 X10E3/UL 3.4-10.8 [facility]
[2020-03-26] MEDS ORDERED: MORPHINE SULFATE INJ 4 MG/ML INJ 1ML ONE (16:53)
[2020-03-26] MEDS: MORPHINE SULFATE 2 MG/ML SYR 1ML IV PRN (17:54)
[2020-03-26 17:59] VITALS: BP 101/61
[2020-03-26] MEDS: LACTATED RINGER'S 1,000 ML IV SCH ×2 (17:59→23:08)
[2020-03-26 18:00] VITALS: BP 101/61
--- NOTE | 2020-03-26 18:49 | NUR ---
Received report from SATHYA Crump at 170. Received patient to floor at 1710. Patient AOx3, able to ambulate to bed. Arias and IV C/D/I. Patient able to eat meal. Oriented to room, procedures, and plan of care. Oriented to whiteboard and hourly rounding. Patient had no issues or complaints.
--- NOTE | 2020-03-26 19:10 | Operative Report ---
DATE OF PROCEDURE: 03/26/2020 SURGEON: Judd Olsen MD PREOPERATIVE DIAGNOSES: Menorrhagia, fibroid uterus, dysmenorrhea, and anemia. POSTOPERATIVE DIAGNOSES: Menorrhagia, fibroid uterus, dysmenorrhea, and anemia. TITLE OF PROCEDURES: Total laparoscopic hysterectomy, bilateral salpingectomy, lysis of adhesions. PANTOGRAPH MACHINE OPERATOR: Dr. Bo Huang. ANESTHESIA: General with Dr. Adan. INDICATION FOR OPERATION: The patient is a 44-year-old 9, para 6-0-3-6. Last menstrual period on March 11, 2020, with lower abdominal pain for 17 years. History of fibroid uterus, severe dysmenorrhea, and anemia with a hemoglobin of 10.2 and lower. Her uterus was 10.6 x 6.2 x 5.7 on ultrasound with 371 volume. Endometrial biopsy reveals benign secretory endometrium with an endometrial polyp. She is therefore, taken to the operating room for laparoscopic hysterectomy, bilateral salpingectomy secondary to menorrhagia, fibroid uterus, dysmenorrhea, and anemia. FINDINGS OF SURGERY: There was attended 12-week size mobile uterus. There were normal ovaries. There was bilateral omental adhesions to the tubes at the tubal ligation site, there were lysed without difficulty. Both ureteral jets were present after surgery on cystoscopy. DESCRIPTION OF PROCEDURE: The patient was taken to the operating room, placed on the table in supine position. General anesthesia was administered. The patient was placed in the lithotomy position. The perineum was prepared and draped in usual sterile manner as was the abdomen. Pelvic exam revealed a 10 to 12-week size mobile uterus with no adnexal masses. The Arias catheter was placed in the bladder for constant drainage. A weighted speculum was placed into the posterior vaginal wall with aid of right angle retractor. The anterior lip of the cervix was grasped with a tenaculum. Then, using a VCare cup, large size, it was attached to the uterus in place and sounded to 9 cm, placed in the endocervical cavity. The balloon was blown up in the VCare cup for manipulation. We then proceeded to laparoscopy. The rag willow operator changed gloves. A small incision was made just inferior to the umbilicus in the midline. The Veress needle was inserted through the incision into the peritoneal cavity. Pneumoperitoneum was created by insufflation of 4 L of carbon dioxide gas and a filling pressure of 8 to 10 mmHg. The trocar was inserted through the incision into the peritoneal cavity. A laparoscope was placed with confirmation that the peritoneal cavity had been entered. Second trocar was placed in the left lower quadrant under direct visualization by laparoscopy and a third trocar was placed in the right lower quadrant under direct visualization by laparoscopy. Attention was then turned to the uterus, it was grasped on the right side. There was noted to be adhesions to the tubes, these were lysed using the LigaSure instrument and then the tubes were grasped and the mesosalpinx was clamped, coagulated, and cut using the LigaSure instrument. This was done down the tube until we reached the area where the tube was completely free from the ovary and mesosalpinx, and then the round ligament was clamped, it was coagulated and cut, and then the anterior peritoneum was opened using the LigaSure instrument from round ligament to round ligament, and then on the left side same thing adhesions of omentum to the tube were lysed using the LigaSure. The tube was then freed up. The mesosalpinx was clamped using the LigaSure instrument in the same manner, clamping, coagulating, and cutting. We the tube from the mesosalpinx all the way to the round ligament. Then, the utero-ovarian ligaments on both sides were clamped, coagulated, and cut, and the round ligament on the left side was clamped, coagulated, and cut, and then the anterior peritoneum was opened all the way around. The Bladder was pushed down away from the uterus and then the uterine vessels on both sides were clamped, coagulated, and cut using the LigaSure instrument and then the uterosacral ligaments were clamped, coagulated, and cut and then using the L-hook the uterus was cut away from the VCare cup and then once it was removed from all attachments, the uterus was pulled out through the vagina and then following this, we proceeded to close the vaginal cuff using the laparoscopic suture. The angles of the vagina were 1st tied off and then a couple more stitches were placed in the vaginal cuff. There was a bleeder on the left side of the cuff, requiring another stitch. After this was carefully done, there was good cessation of bleeding. We then irrigated, suctioned, and found to be no further evidence of bleeding. At this point, Dr. Huang performed cystoscopy. The ureteral jets were noted on both sides and at this point, we proceeded to close all the area and instruments were removed from the abdomen. The counts were correct. The skin incisions were closed with inverted stitches of 4-0 Monocryl suture. There were no complications noted. Estimated blood loss was 200 mL. The patient tolerated the procedure well, and was transferred from operating to recovery room in stable condition. Of note, Dr. Huang assisted with retraction, hemostasis, visualization, suturing, irrigation, and suctioning. The patient received Ancef for prophylaxis. MD MONI Ball/HARVINDER /[id number] MTDD
--- NOTE | 2020-03-26 19:16 | NUR ---
Removed medina per MD's orders. IN tact, no issues, walked to the bathroom.
[2020-03-26] MEDS: KETOROLAC TROMETHAMINE 30 MG/ML VIAL IV PRN (19:57)
[2020-03-26 20:00] VITALS: BP 114/77
[2020-03-26] MEDS: CEFAZOLIN SOD 2 GM/D5W 50ML 50 ML IV SCH (20:01)
--- NOTE | 2020-03-26 21:04 | NUR ---
SPOKE TO DR. NARVAEZ REGARDING PATIENT C/O SORE THROAT. NEW ORDER RECEIVED FOR CEPACOL LOZENGES PRN.
[2020-03-26] MEDS ORDERED: CEPACOL SORE THROAT LOZENGES PO PRN (21:15)
[2020-03-26 21:52] VITALS: BP 114/77
[2020-03-26] MEDS ORDERED: CEFAZOLIN SOD 1 GM VIAL IV SCH (22:00)
[2020-03-27 00:06] VITALS: BP 104/66
[2020-03-27] MEDS: LACTATED RINGER'S 1,000 ML IV SCH (02:15)
[2020-03-27] MEDS: KETOROLAC TROMETHAMINE 30 MG/ML VIAL IV PRN ×2 (02:20→09:03)
[2020-03-27 04:05] VITALS: BP 106/55
[2020-03-27] MEDS: CEFAZOLIN SOD 2 GM/D5W 50ML 50 ML IV SCH (04:05)
[2020-03-27] MEDS: MORPHINE SULFATE 2 MG/ML SYR 1ML IV PRN (05:00)
[2020-03-27 05:39] LABS: BASOPHILS % 0.2 % (0.0-1.0); EOSINOPHILS % 0.2 % (0.0-6.0); HEMATOCRIT 25.5 % (34.2-44.1); LYMPHOCYTES # (AUTO) 1.2 (1.0-3.2); LYMPHOCYTES % 12.6 % (18.0-39.1); MEAN CORPUSCULAR HEMOGLOBIN 27.1 pg (28-32); MEAN CORPUSCULAR HGB CONC 31.4 g/dL (31-35); MEAN CORPUSCULAR VOLUME 86.4 fL (81-99); MONOCYTES # (AUTO) 0.7 (0.2-0.8); MONOCYTES % 7.2 % (4.4-11.3); NEUTROPHILS # (AUTO) 7.8 (2.1-6.9); NEUTROPHILS % 79.5 % (38.7-80.0); PLATELET COUNT 242 x10e3/uL (140-360); RED BLOOD COUNT 2.95 x10e6/uL (3.6-5.1); RED CELL DISTRIBUTION WIDTH 15.2 % (11.7-14.4)
--- NOTE | 2020-03-27 07:00 | NUR ---
BEDSIDE SHIFT REPORT RECEIVED PT IN STABLE CONDITION , 3 TROCHAR SITES TO ABDOMEN C/D/I LEOBARDO PAIN AT THIS TIME, UPDATED ON POC VOICED UNDERSTANDING, IVF INFUSING TO R HAND 20GA NO SS OF INFILTRATION NOTED, NO OTHER CO VOICED CALL LIGHT IN REACH WILL CONTINUE TO MONITOR
[2020-03-27 08:29] VITALS: BP 99/70
[2020-03-27 08:35] VITALS: BP 99/70
== END 2020-03-27 11:45 | disposition home or self-care (01) ==
LOC: OR 10:02 → PACU V 15:39 → MED/SURG 17:10
PROVIDERS: ADMIT Obstetrics & Gynecology; ATTEND Obstetrics & Gynecology
DX: D25.9 Leiomyoma of uterus, unspecified (principal); N92.0 Excessive and frequent menstruation with regular cycle; N94.6 Dysmenorrhea, unspecified; N84.0 Polyp of corpus uteri; Z01.812 Encounter for preprocedural laboratory examination; Z20.828 Contact with and (suspected) exposure to other viral communicable diseases; Z88.5 Allergy status to narcotic agent; K21.9 Gastro-esophageal reflux disease without esophagitis; K29.70 Gastritis, unspecified, without bleeding; D64.9 Anemia, unspecified; N99.4 Postprocedural pelvic peritoneal adhesions
CPT/HCPCS: 36415 ×2; 58571; 80048; 81003; 84702; 85025 ×2; 86850; 86900; 88307; G0378 ×2; J0690 ×2; J1100; J1885 ×2; J2001; J2175; J2270 ×3; J2405; J2704; J7121 ×2; U0002

== ENCOUNTER 2020-04-24 23:05 | Emergency (ER) | payer OTHER ==
[~2020-04-24] VITALS: Ht 157.5 cm; Wt 63.0 kg
[2020-04-24] MEDS ORDERED: PROPOFOL IV EMULSION 10 MG/ML 20 ML VIAL IV ONE (23:45)
[2020-04-24] MEDS ORDERED: KETAMINE HCL INJ 50 MG/ML 10 ML VIAL IV ONE (23:45)
[2020-04-25] MEDS ORDERED: LACTATED RINGER'S 1,000 ML ONE (00:39)
[2020-04-25] MEDS ORDERED: CEFAZOLIN SOD 1 GM/NS 50ML 50 ML IV ONE (01:00)
[2020-04-25 01:11] LABS: BASOPHILS # (AUTO) 0.1 (0.0-0.1); BASOPHILS % 0.7 % (0.0-1.0); EOSINOPHILS # (AUTO) 0.4 (0.0-0.4); EOSINOPHILS % 5.7 % (0.0-6.0); HEMATOCRIT 33.9 % (34.2-44.1); HEMOGLOBIN 10.7 g/dL (12.0-16.0); LYMPHOCYTES # (AUTO) 1.6 (1.0-3.2); LYMPHOCYTES % 22.4 % (18.0-39.1); MEAN CORPUSCULAR HEMOGLOBIN 27.5 pg (28-32); MEAN CORPUSCULAR HGB CONC 31.6 g/dL (31-35); MEAN CORPUSCULAR VOLUME 87.1 fL (81-99); MONOCYTES # (AUTO) 0.7 (0.2-0.8); MONOCYTES % 9.6 % (4.4-11.3); NEUTROPHILS # (AUTO) 4.3 (2.1-6.9); NEUTROPHILS % 61.3 % (38.7-80.0); PLATELET COUNT 249 x10e3/uL (140-360); RED BLOOD COUNT 3.89 x10e6/uL (3.6-5.1); RED CELL DISTRIBUTION WIDTH 17.6 % (11.7-14.4)
[2020-04-25 01:20] LABS: ALANINE AMINOTRANSFERASE 38 IU/L (0-55); ALBUMIN 3.9 g/dL (3.5-5.0); ALBUMIN/GLOBULIN RATIO 1.3 (0.8-2.0); ALKALINE PHOSPHATASE 93 IU/L (40-150); ANION GAP 9.7 mmol/L (8-16); BLOOD UREA NITROGEN 17 mg/dL (7-26); BUN/CREATININE RATIO 25 (6-25); CALCIUM 8.6 mg/dL (8.4-10.2); CARBON DIOXIDE 24 mmol/L (22-29); CHLORIDE 106 mmol/L (98-107); CREATININE, SERUM 0.67 mg/dL (0.57-1.11); EST GLOMERULAR FILTRATION RATE > 60 ML/MIN (60-); GLUCOSE 99 mg/dL (74-118); POTASSIUM 3.7 mmol/L (3.5-5.1); SODIUM 136 mmol/L (136-145)
[2020-04-25] MEDS ORDERED: FENTANYL CITRATE/PF 100MCG/2 ML INJ ONE (01:29)
[2020-04-25] MEDS ORDERED: ONDANSETRON HCL INJ 2MG/ML 2ML 2 MG/ML VIAL IV STA (02:13)
[2020-04-25] MEDS ORDERED: FENTANYL CITRATE/PF 100MCG/2 ML INJ IV ONE (02:15)
[2020-04-25] MEDS ORDERED: ONDANSETRON HCL INJ 2MG/ML 2ML 2 MG/ML VIAL ONE (02:19)
== END 2020-04-25 03:00 | disposition home or self-care (01) ==
LOC: ER 23:11
DX: N93.9 Abnormal uterine and vaginal bleeding, unspecified (principal); Z90.710 Acquired absence of both cervix and uterus; Z88.6 Allergy status to analgesic agent
CPT/HCPCS: 36415; 57200; 80053; 85025; 86850; 86900; 96374; 96375; 96376; 99284; J0690; J2405; J2704; J3010; J7121